=== PATIENT | female | born 1960 | race Caucasian/White ===

== ENCOUNTER 2021-06-04 10:17 | Emergency (ER) | payer SELFPAY ==
[~2021-06-04] VITALS: Ht 162.6 cm; Wt 74.0 kg
[2021-06-04] MEDS ORDERED: HYDROCO/APAP1 TA9 PO (12:16)
[2021-06-04] MEDS ORDERED: KEFLEX500 MG PO (12:16)
[2021-06-04 12:30] VITALS: BP 204/101
[2021-06-06] MEDS ORDERED: HYDROCO/APAP1 TA9 PO (13:11)
== END 2021-06-04 12:40 | disposition home or self-care (01) | DRG 605 ==
LOC: ED 10:17
PROC: 0HQ1XZZ Repair Face Skin, External Approach (ICD-10-PCS; principal; 2021-06-04)
DX: S01.81XA Laceration without foreign body of other part of head, initial encounter (principal); S16.1XXA Strain of muscle, fascia and tendon at neck level, initial encounter; S29.012A Strain of muscle and tendon of back wall of thorax, initial encounter; S80.212A Abrasion, left knee, initial encounter; S70.12XA Contusion of left thigh, initial encounter; V86.65XA Passenger of 3- or 4- wheeled all-terrain vehicle (ATV) injured in nontraffic accident, initial encounter; Y93.I9 Activity, other involving external motion; Y92.833 Campsite as the place of occurrence of the external cause